=== PATIENT | male | born 1995 | race American Indian/Alaskan Native ===

== ENCOUNTER 2022-07-15 19:59 | Emergency (ER) | payer MEDICAID ==
[2022-07-15 20:33] LABS: BILIRUBIN,URINE NEGATIVE (NEGATIVE); GLUCOSE, URINE (UA) NEGATIVE (NEGATIVE); KETONES,URINE (UA) NEGATIVE (NEGATIVE); LEUKOCYTE ESTERASE, URINE NEGATIVE (NEGATIVE); NITRITE,URINE NEGATIVE (NEGATIVE); OCCULT BLOOD,URINE LARGE (NEGATIVE); PH,URINE 6.5 PH (5.0-7.5); PROTEIN,URINE TRACE mg/dL (NEGATIVE); UROBILINOGEN,URINE 1 (NORMAL) E.U./dL (NORMAL)
[2022-07-15 20:35] LABS: CLARITY,URINE HAZY (CLEAR)
[2022-07-15 20:48] LABS: RBC,URINE TNTC /HPF (0-5); WBC,URINE 0-3 /HPF (0-3)
[2022-07-15 20:49] LABS: AMORPHOUS SEDIMENT,UR Moderate /LPF; BACTERIA,URINE Rare /HPF (None Seen); MUCUS,URINE Few Strands; SQUAMOUS EPITHELIAL CELL,UR RARE Squamous (<= Few)
[2022-07-15] MEDS ORDERED: SODIUM CHLORIDE 0.9% 1,000 ML IV STA (21:18)
[2022-07-15] MEDS ORDERED: KETOROLAC 15 MG/ML VIAL IVP STA (21:19)
[2022-07-15] MEDS ORDERED: ONDANSETRON 4 MG/2 ML VIAL IVP STA (21:19)
[2022-07-15 21:34] LABS: BASOPHILS # (AUTO) 0.1 10^3/uL (0.0-0.1); BASOPHILS % (AUTO) 0.5 %; EOSINOPHILS % (AUTO) 0.4 %; HGB - HEMOGLOBIN 15.1 g/dL (14.0-18.0); LYMPHOCYTES % (AUTO) 19.9 %; MEAN CORPUSCULAR HEMOGLOBIN 27.8 pg (27.0-31.0); MEAN CORPUSCULAR HGB CONC 32.1 g/dL (32.0-36.0); MEAN CORPUSCULAR VOLUME 86.4 fL (80.0-94.0); MEAN PLATELET VOLUME 9.1 fL (7.4-11.4); MONOCYTES # (AUTO) 0.8 10^3/uL (0.0-1.0); MONOCYTES % (AUTO) 7.8 %; NEUTROPHILS % (AUTO) 71.1 %; PLT - PLATELET COUNT 323 10^3/uL (130-450); RED BLOOD COUNT 5.44 10^6/uL (4.70-6.10); RED CELL DISTRIBUTION WIDTH 12.6 % (12.0-15.0); WHITE BLOOD COUNT 9.8 x10^3/uL (4.8-10.8)
--- NOTE | 2022-07-15 21:42 | CT Report ---
PROCEDURE: ABDOMEN/PELVIS WO INDICATIONS: flank pain; heamturia TECHNIQUE: Noncontrast 5 mm thick sections acquired from the diaphragms to the symphysis. 5 mm coronal and sagi ttal reformats were then performed. For radiation dose reduction, the following was used: automated exposure control, adjustment of mA and/or kV according to patient size. COMPARISON: None. FINDINGS: Image quality: Excellent. ABDOMEN: Lung bases: Lung bases are clear. Heart size is normal. Solid organs: Liver and spleen are normal in size. Moderate hepatic steatosis is seen, no gross dis crete hepatic lesion. Gallbladder is within normal limits. Pancreas is normal in contours. No adren al nodules. Kidneys are normal in size. There is moderate left-sided hydronephrosis and proximal to mid hydrouret er. 7 mm stone is seen in left mid to distal ureter approximately 8.5 cm from left UVJ and measures 5 27 Hounsfield unit in density. No right-sided hydronephrosis or hydroureter. Peritoneum and bowel: Unenhanced bowel loops demonstrate normal wall thickness and caliber. No free fluid or air. Nodes and vessels: No retroperitoneal or mesenteric adenopathy by size criteria. Aorta and inferior vena cava are normal in caliber. Miscellaneous: No ventral hernias. PELVIS: Genitourinary: Bladder wall thickness is normal. Miscellaneous: No inguinal hernias or adenopathy. Bones: No suspicious bony lesions. No vertebral body compression fractures. IMPRESSION: 1. 7 mm stone in left mid to distal ureter with moderate left-sided hydronephrosis and proximal to mi d hydroureter. 2. No right-sided stones or hydronephrosis. No right hydroureter. Normal-appearing urinary bladder. 3. Moderate hepatic steatosis. No discrete hepatic lesion. 4. No bowel obstruction. No abnormal bowel wall thickening. No free fluid of free air. Reviewed by: Haseeb Gomez MD on 07/15/2022 9:41 PM PDT Approved by: Haseeb oGmez MD on 07/15/2022 9:41 PM PDT Station ID: [id number]
[2022-07-15 21:49] LABS: ALBUMIN 5.1 g/dL (3.2-5.5); ALBUMIN/GLOBULIN RATIO 1.4 (1.0-2.2); CREATININE 1.3 mg/dL (0.6-1.2); POTASSIUM 4.4 mmol/L (3.5-5.0); TOTAL PROTEIN 8.7 g/dL (6.7-8.2)
[2022-07-15] MEDS ORDERED: HYDROmorphone 1 MG/ML CARPUJECT IVP STA (22:08)
--- NOTE | 2022-07-15 22:12 | ED Physician Documentation ---
History of Present Illness - Stated complaint Stated Complaint: L BACK PX - Chief complaint Chief Complaint: Abd Pain - History obtained from History obtained from: Patient - Additonal information Additional information: 27yM p/w 3 days of intermittent L flank pain radiating to the front. sharp, severe, sudden onset, unrelieved by position change. denies fever or urinary sx. Review of Systems Ten Systems: 10 systems reviewed and negative Constitutional: denies: Fever GI: denies: Abdominal Pain : denies: Dysuria Musculoskeletal: reports: Back pain PD PAST MEDICAL HISTORY - Present Medications Home Medications: Ambulatory Orders Medication Instructions Recorded Confirmed Ondansetron Odt [Zofran Odt] 4 mg TL Q6H PRN #10 tablet 07/15/22 Oxycodone HCl/Acetaminophen 1 each PO Q4H PRN #10 tablet 07/15/22 [Percocet 10-325 mg Tablet] Tamsulosin [Flomax] 0.4 mg PO DAILY 14 Days #14 tab 07/15/22 - Allergies Allergies/Adverse Reactions: Allergies Allergy/AdvReac Type Severity Reaction Status Date / Time No Known Drug Allergies Allergy Verified 07/15/22 20:12 PD ED PE NORMAL - Vitals Vital signs reviewed: Yes - General General: Alert and oriented X 3, No acute distress, Well developed/nourished - HEENT HEENT: Atraumatic, PERRL, EOMI - Neck Neck: Supple, no meningeal sign - Cardiac Cardiac: RRR - Respiratory Respiratory: No respiratory distress, Clear bilaterally - Abdomen Abdomen: Non tender, Non distended - Back Back: Other (L CVA ttp) - Derm Derm: Normal color, Warm and dry Results - Vitals Vitals: Vital Signs - 24 hr 07/15/22 07/15/22 07/15/22 20:09 22:25 22:50 Temperature 36.8 C Heart Rate 100 79 80 Respiratory 18 16 16 Rate Blood Pressure 125/90 H 133/81 H 134/78 H O2 Saturation 97 98 100 Oxygen O2 Source Room air - Labs Labs: Laboratory Tests 07/15/22 07/15/22 07/15/22 20:25 21:30 21:30 WBC 9.8 RBC 5.44 Hgb 15.1 Hct 47.0 MCV 86.4 MCH 27.8 MCHC 32.1 RDW 12.6 Plt Count 323 MPV 9.1 Neut # (Auto) 7.0 H Lymph # (Auto) 2.0 [place] # (Auto) 0.8 Eos # (Auto) 0.0 Baso # (Auto) 0.1 Absolute Nucleated RBC 0.00 Nucleated RBC % 0.0 Sodium 138 Potassium 4.4 Chloride 100 L Carbon Dioxide 27 Anion Gap 11.0 BUN 25 H Creatinine 1.3 H Estimated GFR (MDRD) 66 L Glucose 127 H Calcium 10.0 Total Bilirubin 1.0 AST 150 H ALT 172 H Alkaline Phosphatase 100 Total Protein 8.7 H Albumin 5.1 Globulin 3.6 Albumin/Globulin Ratio 1.4 Lipase 31 Urine Color YELLOW Urine Clarity HAZY Urine pH 6.5 Ur Specific [place] 1.020 Urine Protein TRACE Urine Glucose (UA) NEGATIVE Urine Ketones NEGATIVE Urine Occult Blood LARGE H Urine Nitrite NEGATIVE Urine Bilirubin NEGATIVE Urine Urobilinogen 1 (NORMAL) Ur Leukocyte Esterase NEGATIVE Urine RBC TNTC H Urine WBC 0-3 Ur Squamous Epith Cells RARE Squamous Amorphous Sediment Moderate Urine Bacteria Rare Urine Mucus Few Strands Ur Microscopic Review INDICATED Urine Culture Comments NOT INDICATED PD MEDICAL DECISION MAKING - ED course ED course: Patient with left 7 mm mid ureter stone with moderate hydronephrosis, creatinine 1.3 and urinalysis without signs of infection. Pain well controlled. d/w Dr. Kilo Trejo, urologist with [facility] who recommends outpatient pain meds/flomax, f/u in clinic this week. Discussed with the patient and return precautions were given. Departure - Departure Disposition: 01 Home, Self Care Clinical Impression: Kidney stones, Vomiting Condition: Good Instructions: Kidney Stones Follow-Up: KILO REYES MD [Physician No Access] - Prescriptions: Tamsulosin [Flomax] 0.4 mg PO DAILY 14 Days #14 tab Oxycodone HCl/Acetaminophen [Percocet 10-325 mg Tablet] 1 each PO Q4H PRN #10 tablet PRN Reason: Pain Ondansetron Odt [Zofran Odt] 4 mg TL Q6H PRN #10 tablet PRN Reason: Nausea / Vomiting Comments: You were seen in the emergency department for a 7 mm left-sided kidney stone in the middle of your ureter. Please follow-up with urology this week and return to the emergency department if you have any new or worsening symptoms or other concerns. Prescriptions were sent for Zofran, and nausea medicine, and Percocet, pain medication to your pharmacy as well as Flomax, medicine that helps move stones along. Discharge Date/Time: 07/15/22 22:50
[2022-07-15] MEDS ORDERED: oxyCODONE/ACET 5/325 Prepack 4 PO STA (22:16)
[2022-07-15] MEDS ORDERED: ONDANSETRON ODT 4 MG Prepack 2 TL PRN (22:17)
[2022-07-15 22:51] VITALS: BP 134/78
== END 2022-07-15 22:50 | disposition home or self-care (01) ==
LOC: ED 19:59
DX: N13.2 Hydronephrosis with renal and ureteral calculous obstruction (principal)
CPT/HCPCS: 36415; 74176; 80053; 81001; 83690; 85025; 96361; 96374; 96375; 99282; 99284; J1170; 81003; 87086